=== PATIENT | male | born 1965 ===

== ENCOUNTER → 2018-07-20 23:26 | Outpatient (REF) | payer OTHER, SELFPAY ==
[2018-07-20 23:30] LABS: Bacteria Urine None Seen; RBC Urine None Seen (0-5/HPF); WBC Urine None Seen (0-5/HPF)
[2018-07-20 23:40] LABS: Add Manual Diff / Slide Review NO; Eosinophils Percent Auto 4.1 % (2-4); Hematocrit 46.7 % (41-53); Mean Corpuscular HGB Conc 34.3 % (30-36); Mean Corpuscular Volume 93.2 fL (80-100); Monocytes Percent Auto 6.3 % (3-14); Neutrophils Absolute Auto 3500 /uL (1500-7000); Neutrophils Percent Auto 51.6 % (50-75); Platelet Count 297 X10^3/uL (150-400); White Blood Cell Count 6.9 X10^3/uL (4.5-11.0)
[2018-07-20 23:59] LABS: Appearance Urine UA CLEAR; Bilirubin Urine UA NEGATIVE (NEGATIVE); Color Urine UA YELLOW; Glucose Urine UA NEGATIVE (Negative); Ketones Urine UA NEGATIVE (NEGATIVE); Leukocyte Esterase Urine UA NEGATIVE (NEGATIVE); Nitrite Urine UA NEGATIVE (Negative); Occult Blood Urine UA NEGATIVE (Negative); Protein Urine UA NEGATIVE (Negative); Specific Gravity Urine UA 1.025 (1.000-1.035); Urobilinogen Urine UA 0.2 E.U./dL (0.2)
[2018-07-21 00:07] LABS: HEMOLYSIS < 15 (0-50)
[2018-07-21 00:15] LABS: Alanine Aminotransferase 42 IU/L (21-72); Albumin 4.2 g/dL (3.5-5.0); Albumin Globulin Ratio 1.6 (1.0-2.8); Alkaline Phosphatase 76 U/L (38-126); Aspartate Aminotransferase 29 IU/L (17-59); Bilirubin Total 0.3 mg/dL (0.2-1.3); Blood Urea Nitrogen 14 mg/dL (9-20); Calcium 9.4 mg/dL (8.4-10.2); Carbon Dioxide 27 mmol/L (22-32); Chloride 105 mmol/L (98-107); Cholesterol 285 mg/dL (140-199); Estimated Glomerular Filt Rate > 60.0 mL/min (>60); Globulin 2.6 g/dL (1.7-4.1); Glucose 82 mg/dL (70-100); HDL Cholesterol 29 mg/dL (40-60); Potassium 4.6 mmol/L (3.4-5.1); Sodium 141 mmol/L (137-145); Total Protein 6.8 g/dL (6.3-8.2)
[2018-07-21 00:28] LABS: Triglycerides 936 mg/dL (35-150)
[2018-07-21 00:38] LABS: Culture Indicated Urine Cult Not Indicated; Urine Comments Microscopic Normal
[2018-07-21 00:43] LABS: TSH w/ Reflex to FT4 2.75 uIU/mL (0.47-4.68)
[2018-07-21 00:48] LABS: Ferritin 80.4 ng/mL (17.9-464)
[2018-07-24 20:12] LABS: PSA Total 0.56 ng/mL (< 4.01)
== END ==
LOC: LAB 23:26
PROVIDERS: Visit Provider Naturopath
DX: Z00.00 Encounter for general adult medical examination without abnormal findings (principal)
CPT/HCPCS: 36415; 80053; 80061; 81001; 82728; 84153; 84154; 84443; 85025

== ENCOUNTER → 2018-09-18 22:17 | Outpatient (REF) | payer OTHER, SELFPAY ==
[2018-09-18 22:43] LABS: Cholesterol 153 mg/dL (140-199); HDL Cholesterol 35 mg/dL (40-60); LDL Cholesterol Calculated 80 mg/dL (<100); Triglycerides 188 mg/dL (35-150)
== END ==
LOC: LAB 22:17
PROVIDERS: Visit Provider Family Medicine
DX: E29.1 Testicular hypofunction (principal); F41.1 Generalized anxiety disorder; G47.00 Insomnia, unspecified
CPT/HCPCS: 36415; 80061